=== PATIENT | female | born 1990 | race Caucasian/White ===

== ENCOUNTER 2025-03-04 06:53 | Day surgery (SDC) | payer BC, OTHER ==
--- NOTE | 2025-03-02 10:54 | HP ---
HISTORY AND PHYSICAL HISTORY OF PRESENT ILLNESS: Patient is a 34-year-old female presents with an umbilical hernia. It is small. It is soft. It is a little tender. She has been having some bloating and back pain and a weight gain. It looks like she had a CT scan showing an ovarian cyst. She has seen a [facility] for that. It looks like we ordered a HIDA scan on her that was negative. I think we are planning on doing some endoscopy on her after fixing her hernia. PAST MEDICAL HISTORY: Depression. HOME MEDICATIONS: Desvenlafaxine. ALLERGIES: [place]. PAST SURGICAL HISTORY: . SOCIAL HISTORY: Former smoker. Occasional alcohol. FAMILY HISTORY: None. REVIEW OF SYSTEMS: CONSTITUTIONAL: Denies fever or chills. CHEST: Denies shortness of breath. CARDIOVASCULAR: Denies chest pain. ABDOMEN: Reports abdominal pain. PHYSICAL EXAMINATION: GENERAL: No acute distress. CARDIOVASCULAR: Regular rate and rhythm. RESPIRATORY: Nonlabored. No shortness of breath. ABDOMEN: Soft with a small umbilical hernia. ASSESSMENT: Umbilical hernia. PLAN: Umbilical hernia repair with possible mesh with Dr. Sundeep Gunderson. This report was dictated for Dr. Gunderson by Blossom Bennett NP.
[~2025-03-04 06:53] MED LIST: Sensorcaine 0.25% 10 ML ONE
[2025-03-04] MEDS: CEFAZOLIN 2 GM/100 ML NaCl 2 GM/100 ML IVPB IV SCH (07:00)
[2025-03-04 07:08] VITALS: RESP 18
[2025-03-04] MEDS: Lactated Ringers 1,000 ML IV SCH (07:11)
[2025-03-04 07:15] LABS: HCG URINE TEST NEGATIVE (NEGATIVE)
[2025-03-04] MEDS ORDERED: Versed 2 MG/2 ML Injection ONE (08:15)
[2025-03-04] MEDS ORDERED: ROCURONIUM BROMIDE IV ONE (08:18)
[2025-03-04] MEDS ORDERED: BRIDION 200MG/2ML IV ONE (08:18)
[2025-03-04] MEDS ORDERED: SUBLIMAZE 100 MCG/2 ML ONE ×2 (08:18→09:51)
[2025-03-04] MEDS ORDERED: Zofran 4 MG/2 ML VIAL ONE (08:18)
[2025-03-04] MEDS ORDERED: dexAMETHasone sodium phosphate ONE (08:18)
[2025-03-04] MEDS ORDERED: Xylocaine-Mpf 2% 5 Ml Vial ONE (08:18)
[2025-03-04] MEDS ORDERED: propofoL IV ONE (08:18)
[2025-03-04] MEDS ORDERED: DEXMEDETOMIDINE 80 MCG/20ML-NS IV ONE (08:43)
[2025-03-04] MEDS ORDERED: TORAdol 30 mg Injection ONE (09:07)
[2025-03-04 10:25] VITALS: TEMP 97.8
[2025-03-04 10:30] VITALS: BP 112/72; PULSE 72; O2SAT 99
--- NOTE | 2025-03-04 21:12 | OP ---
SURGERY DATE/TIME: 03/04/2025 [id number] PREOPERATIVE DIAGNOSIS: Umbilical hernia. POSTOPERATIVE DIAGNOSIS: Umbilical hernia with incarcerated fat. PROCEDURE: Open primary umbilical herniorrhaphy with sutures. SURGEON: Sundeep Gunderson MD [employer]: Medical Student 3. ANESTHESIA: General. Local additional numbing, 0.25% Marcaine. COMPLICATIONS: None. CONDITION: Stable. DESCRIPTION OF PROCEDURE AND FINDINGS: Patient has symptomatic hernia and marked preoperatively at 3 o'clock. She was taken to surgery. Left lateral limited umbilical incision was made. There was a peritoneal hernia sac. There was incarcerated omentum. There were 2 pieces of this was taken off. Bases were totally fulgurated and dropped back in. The defect was 8 mm. It was closed with 2 inverting 2-0 PDS sutures, then a 2-0 Vicryl. Skin closed with 4-0 Vicryl and glue. Patient tolerated the procedure satisfactorily.
== END 2025-03-04 10:42 | disposition home or self-care (01) ==
LOC: SDC 06:53 → EDSTATUS 15:33
PROVIDERS: ATTEND Surgery
DX: K42.0 Umbilical hernia with obstruction, without gangrene (principal)
CPT/HCPCS: 81025; J0690; J1100; J1885; J2250; J2405; J2704; J3010